=== PATIENT | female | born 1940 | race Caucasian/White ===

== ENCOUNTER → 2016-11-10 | Outpatient (CLI) | payer MEDICARE ==
--- NOTE | 2016-11-10 15:41 | MAM ---
History: Well woman exam. Date of exam: 11/10/2016 Services provided: Bilateral full field digital screening mammography. CAD, the images were reviewed with R2 computer aided detection. FINDINGS: Glandular tissue is scattered glandular contour. Comparison with 2012 exam. No dominant mass, architectural distortion or clustered microcalcification. IMPRESSION: Benign exam Recommendation: Routine annual mammography BIRAD CATEGORY: 2 BENIGN Electronically signed by: Jazmine Aleman MD 11/10/2016 3:40 PM CDT Workstation: [id number]
== END | disposition home or self-care (01) ==
LOC: RAD 14:53
PROVIDERS: ATTEND Family Medicine
DX: Z12.31 Encounter for screening mammogram for malignant neoplasm of breast (principal)

== ENCOUNTER → 2017-03-10 | Outpatient (CLI) | payer MEDICARE | END | disposition home or self-care (01) | LOC: GMAB 11:03 | PROVIDERS: ATTEND Family Medicine | DX: E03.9 Hypothyroidism, unspecified (principal); E78.5 Hyperlipidemia, unspecified ==

== ENCOUNTER → 2017-03-13 | Outpatient (CLI) | payer MEDICARE ==
--- NOTE | 2017-03-13 15:30 | US ---
EXAM DESCRIPTION: Abdomen,Complete CLINICAL HISTORY: CHRON DISEASE WO COMPLICATIONS COMPARISON: ET scan 07/11/2015. TECHNIQUE: Transabdominal scannin-dimensional and Doppler modes. FINDINGS: The gallbladder is normal in size, shape, and echogenicity, with no intraluminal stones or sludge. No fluid around the gallbladder. Wall thickness normal. 1.1 mm. Common bile duct caliber 2.8 mm which is within normal limits. No stones in the visualized portion of the duct. Not tender with transducer pressure. The liver demonstrates normal echogenicity; contour of the liver capsule is smooth where seen. No fluid around the liver. Intrahepatic biliary ducts are non-dilated. Craniocaudal dimension in the mid-clavicular axis is 11.4 cm. Pancreas head, body, and tail normal in size and echogenicity. Pancreatic duct is not dilated. Normal Doppler vascularity in the christiano hepatis. Abdominal aorta diameter proximal 2.3 cm. Mid 1.6 cm. Distal 1.4 cm. IVC visualized; normal caliber. Spleen normal echogenicity; long axis measurement is 5.7 cm. No fluid in the spleno-renal fossa. Right kidney measures 9.5 x 5.0 x 4.9 cm , normal mid renal cortical thickness. Echogenicity normal with no hydronephrosis, no large calcifications, and no perinephric fluid. Contour smooth. Vascularity normal. Ureter not visualized. Left kidney measures 9.2 x 5.6 x 5.2 cm , normal mid renal cortical thickness. Echogenicity normal with no hydronephrosis, no large calcifications, and no perinephric fluid. Contour smooth. Vascularity normal. Ureter not visualized. IMPRESSION: Normal ultrasound of the abdomen. Normal size echogenicity of the liver, spleen, gallbladder, pancreas, and kidneys. Normal intrahepatic and extrahepatic ducts. No ascites. Electronically signed by: Rick Hansen MD 03/13/2017 3:29 PM CDT
== END | disposition home or self-care (01) ==
LOC: US 09:12
PROVIDERS: ATTEND Family Medicine
DX: K50.90 Crohn's disease, unspecified, without complications (principal)

== ENCOUNTER → 2018-02-15 | Outpatient (CLI) | payer MEDICARE ==
--- NOTE | 2018-02-12 16:53 | MRI ---
EXAM DESCRIPTION: Brain w/o Contrast: MRI. CLINICAL HISTORY: DIZZINESS COMPARISON: None. TECHNIQUE: Multiplanar, high-field MRI unit, multiple diffusion sequences, multiple conventional sequences without contrast. Some of the sequences are partially degraded due to patient motion. FINDINGS: Bilateral confluent and multifocal hyperintense FLAIR and T2-weighted signal in the periventricular white matter, more than the david-white matter junctions of the cerebral hemispheres. Relatively symmetric bilaterally. No hemorrhage, no cerebral edema, no mass-effect. No diffusion restriction. Similar hyperintense T2 and FLAIR signal in the bilateral basal ganglia, but no hemorrhage or diffusion restriction. Minimal FLAIR hyperintense signal in the brainstem, mainly in the tamra. Normal signal in the bilateral cerebellar hemispheres. No hemorrhage, no cerebral edema, no mass-effect. Concordance of the diffusion and non-diffusion sequences with no diffusion restriction. Cortical sulci, ventricles, and other CSF spaces, and the subdural spaces are normally configured for patients age. No effacement or displacement. No hydrocephalus or midline shift. No extra-axial hemorrhage. Normal flow signal void in the major vessels of the [place], and the venous sinuses. IACs are symmetric bilaterally. Minimal fluid signal bilaterally in the mastoid air cells. No mass effect in the bilateral cerebellopontine angles. Pituitary gland occupies most of the sella. Base of the cerebellar tonsils is above the foramen magnum. Minimal chronic thickening in the ethmoid air cells. Left maxillary antrum unremarkable. Right maxillary antrum obscured by metallic susceptibility artifact from dental hardware right maxilla.. The bony calvarium is intact. IMPRESSION: 1. Bilateral symmetric abnormal white matter signal in the periventricular white matter and bilateral basal ganglia most likely related to cerebral microvascular disease and age-related changes. Minimal age-related changes in the subcortical white matter. Also bilateral vascular changes in the tamra of the brainstem. 2. No intra-axial or extra-axial hemorrhage, no mass effect, no cerebral edema. Normal noncontrast MRI diffusion study with no diffusion restriction and no evidence of acute or subacute infarction Electronically signed by: Rick Hansen MD 02/12/2018 4:51 PM CDT
--- NOTE | 2018-02-13 10:34 | MRI ---
EXAM DESCRIPTION: MRA Head and/or Neck CLINICAL HISTORY: DIZZINESS COMPARISON: None. TECHNIQUE: 3D [id number] thin-section axial acquisitions through the base of the skull and the [place]. Non contrast. MIP reconstructions. FINDINGS: Bilateral ICAs are well seen in the superior cervical segments, petrous bone segments, carotid siphons and intracranial segments. No significant narrowing. Normal bifurcations bilaterally no significant narrowing of proximal middle cerebral and anterior cerebral arteries bilaterally. No aneurysms, no mass effect, and no vasculitis. Posterior circulation is unremarkable with codominant vertebral arteries. No posterior communicating arteries between the anterior and posterior circulations are visualized. Incidentally noted is no right PICA vessel originating from the distal right vertebral artery. IMPRESSION: No significant abnormalities noted in the anterior and posterior circulations of the brain: No aneurysms, no stenoses, no mass effect, and no vasculitis. No posterior communicating arteries between the anterior and posterior circulations which is a normal variant. Electronically signed by: Rick Hansen MD 02/13/2018 10:33 AM CDT
== END ==
LOC: MRI 14:00
PROVIDERS: ATTEND Psychiatry & Neurology Neurology
DX: R42 Dizziness and giddiness (principal); R11.0 Nausea

== ENCOUNTER → 2019-01-03 | Outpatient (CLI) | payer MEDICARE | LOC: GMAE 10:52 | PROVIDERS: ATTEND Family Medicine | DX: E03.9 Hypothyroidism, unspecified (principal); I10 Essential (primary) hypertension ==

== ENCOUNTER → 2019-01-06 | Outpatient (CLI) | payer MEDICARE ==
--- NOTE | 2019-01-06 19:19 | MRI ---
EXAM DESCRIPTION: Brain w/o Contrast: MRI. CLINICAL HISTORY: DIZZINESS AND GIDDINESS COMPARISON: MRI scan of the brain without contrast 02/12/2018. TECHNIQUE: Multiplanar, high-field MRI unit, multiple diffusion sequences, multiple conventional sequences without contrast. FINDINGS: Confluent hyperintense FLAIR and T2-weighted signal in the [place] radiata of the bilateral frontal lobes and abutting the frontal horns, extending superiorly into the centrum semiovale of the frontal parietal and occipital lobes. Also bilateral focal lesions in the subcortical white matter mostly in the frontal and parietal lobes with fewer lesions in the occipital lobes. No significant change from the prior study.. No hemorrhage, no cerebral edema, no mass-effect. No diffusion restriction. Bilateral focal lesions in the basal ganglia, particularly anterior limbs of the internal capsules more on the left than the right. Stable since the prior study with no hemorrhage mass effect or diffusion restriction. Similar signal but less distinct in the bilateral tracts of the tamra, and the anterior right pontine cortex. No hemorrhage or diffusion restriction. Normal signal in the remainder of the brain stem and cerebellar hemispheres. No hemorrhage, no parenchymal edema, no mass-effect. No diffusion restriction. Concordance of the diffusion and non-diffusion sequences with no diffusion restriction. Cortical sulci, ventricles, and other CSF spaces, and the subdural spaces are age appropriate. No effacement or displacement. No midline shift. No extra-axial hemorrhage. Normal flow signal void in the major vessels of the [place], and the venous sinuses. IACs are symmetric bilaterally. Normal signal in the bilateral mastoid air cells. No mass effect in the bilateral cerebellopontine angles. Pituitary gland occupies most of the sella. Base of the cerebellar tonsils is above the foramen magnum. No significant chronic or acute disease in the paranasal sinuses.. The bony calvarium is intact. IMPRESSION: 1. Multifocal and confluent periventricular white matter lesions and lesions in the bilateral centrum semiovale predominantly in the frontal and parietal lobes. Also bilateral subcortical and periventricular white matter lesions are fewer in the occipital lobes. Also bilateral extensive involvement of the basal ganglia, more left than right. Stable since the prior study most likely related to cerebral microvascular disease and/or age-related changes. Also age-related changes of the ventricles and cortical sulci and cisterns. No intra-axial extra-axial hemorrhage, no mass effect, and no diffusion restriction. 2. Bilateral signal in the central tracts of the tamra, and anterior right cortex, most likely same process with no hemorrhage or diffusion restriction. Also stable since the prior study.. Electronically signed by: iRck Hansen MD 01/06/2019 7:18 PM CDT
== END ==
LOC: MRI 11:00
PROVIDERS: ATTEND Family Medicine
DX: R90.82 White matter disease, unspecified (principal)

== ENCOUNTER → 2020-03-09 | Outpatient (CLI) | payer MEDICARE | LOC: GMAE 13:19 | PROVIDERS: ATTEND Family Medicine | DX: I10 Essential (primary) hypertension (principal) ==

== ENCOUNTER → 2020-03-23 | Outpatient (CLI) | payer MEDICARE ==
--- NOTE | 2020-03-26 13:51 | MRI ---
EXAM DESCRIPTION: Brain w/o Contrast: MRI. CLINICAL HISTORY: MS COMPARISON: Noncontrast MRI scan brain December 2018. TECHNIQUE: Multiplanar, high-field MRI unit, multiple diffusion sequences, multiple conventional sequences without contrast. Some sequences showing motion artifact. FINDINGS: Inflammatory hyperintense FLAIR and T2-weighted signal in the periventricular white matter predominantly in the frontal and parietal lobes extending superiorly in the hill radiata bilaterally and also involving the centrum semiovale. Also bilateral foci of hyperintense T1 and T2 lesions in the subcortical white matter predominantly frontal and parietal lobes. Also similar signal lesions in the bilateral anterior limbs of internal capsule, more than posterior limbs. Minimal involvement of the occipital lobes. No white matter lesions in the corpus callosum. No hemorrhage, no cerebral edema, no midline shift.. No diffusion restriction. Stable since the prior study Multifocal lesions involving the bilateral basal ganglia. No hemorrhage, no cerebral edema, no mass-effect. No diffusion restriction. No change from the prior study. Bilateral similar signal in the tamra; no hemorrhage, no mass effect, no diffusion restriction. No interval change. Remainder of the Brainstem and cerebellar hemispheres are unremarkable. No hemorrhage, no cerebral edema, no mass-effect. Concordance of the diffusion and non-diffusion sequences in the remainder of the brain with no diffusion restriction. Cortical sulci, ventricles, and other CSF spaces, and the subdural spaces are morphologically consistent with the patient's age. No effacement or displacement. No midline shift. No extra-axial hemorrhage. Normal flow signal void in the major vessels of the [place], and the venous sinuses. Stable since the prior study. IACs are symmetric bilaterally. Normal signal in the bilateral mastoid air cells. No mass effect in the bilateral cerebellopontine angles. Pituitary gland occupies most of the sella. Base of the cerebellar tonsils is at the level of the foramen magnum. Minimal mucoperiosteal thickening in the paranasal sinuses.. The bony calvarium is intact. IMPRESSION: 1. Multiple periventricular white matter lesions, as well as lesions in the subcortical white matter, basal ganglia, internal capsule, and tamra, consistent with clinical history. No new/significant lesions since the prior study December 2018. No intra-axial extra-axial hemorrhage, no cerebral edema. No diffusion restriction. 2. Diffusion noncontrast brain study also normal enhancement of the regions of the brain. Chronic paranasal sinusitis. Electronically signed by: Rick Hansen MD 03/26/2020 1:49 PM CDT
== END ==
LOC: MRI 13:00
PROVIDERS: ATTEND Psychiatry & Neurology Neurology
DX: G35 Multiple sclerosis (principal); M51.16 Intervertebral disc disorders with radiculopathy, lumbar region; J32.9 Chronic sinusitis, unspecified

== ENCOUNTER → 2020-04-02 | Outpatient (CLI) | payer MEDICARE ==
--- NOTE | 2020-04-03 15:41 | MRI ---
EXAM DESCRIPTION: Cervical Spine: MRI. CLINICAL HISTORY: 80 years Female MS COMPARISON: MRI scan of the brain March 23. TECHNIQUE: Multiplanar, high-field MRI, multiple sequences, non-contrast Cervical spine. FINDINGS: C2-C3: Minimal disc desiccation with disc space maintained. Trace anterolisthesis. No bulging. Bilateral foramina are patent. However, the left vertebral artery enters the left foramen abutting the exiting left C3 nerve. Mild left facet arthrosis. No canal stenosis. C3-C4: Moderate disc space loss and endplate reactive changes larger to the left of midline. Bilateral uncinate spurs. Posterior disc osteophyte complex bulge abutting the cord. Moderate narrowing of the right neural foramen and borderline left neural foraminal stenosis. Moderate canal narrowing. No significant facet arthrosis bilaterally. C4-C5: Disc desiccation and bilateral moderate endplate reactive changes. Posterior disc osteophyte bulge abutting the cord and thickening of the ligaments with moderate canal narrowing. Bilateral uncinate spurs and moderate right neuroforaminal narrowing and moderate to severe left neural foraminal narrowing. No significant facet arthrosis bilaterally. C5-C6: Disc desiccation bilateral moderate endplate reactive changes and also posterior disc osteophyte complex bulge impressing on the midline and right paracentral cord. Posterior bilateral ligament thickening with mild central canal stenosis. Moderate right foraminal narrowing and borderline left neural foraminal stenosis. C6-C7: Disc desiccation and mild to moderate disc space loss mostly posterior. Posterior minimal disc osteophyte bulge not abutting the cord. Mild canal narrowing. Mild Bilateral neural foraminal narrowing.. Normal signal in the C7-T1 disc and T1-T2 disc with no bulging. Disc spaces preserved. Canal and neural foramina are patent. Facet joints unremarkable. Spinal alignment C2-C4 kyphosis. No cord compression or cord edema. Atlantoaxial joint negative. Base of the cerebellar tonsils is above the foramen magnum. Paravertebral soft tissues negative. Vertebral bodies are not compressed at any level. Otherwise normal marrow signal in the remaining vertebral bodies and the posterior elements. IMPRESSION: 1. Multiple levels of spondylosis, disc space loss, disc desiccation, uncinate spurs and Canal and foraminal significant narrowing from C3-C4 level to C6-C7 level. 2. Borderline left neural foraminal stenosis C3-C4. Correlate for left C4 radiculopathy. 3. Moderate to severe left neural foraminal narrowing at C4-C5. Correlate for left C5 radiculopathy. 4. Advanced spondylosis C5-C6 with mild central canal stenosis and borderline left neural foraminal stenosis. Correlate for left C6 radiculopathy. 5. Please refer to the FINDINGS for discussion of results at other disc space levels. Electronically signed by: Rikc Hansen MD 04/03/2020 3:39 PM [facility]
== END ==
LOC: MRI 14:00
PROVIDERS: ATTEND Psychiatry & Neurology Neurology
DX: G35 Multiple sclerosis (principal); M51.16 Intervertebral disc disorders with radiculopathy, lumbar region; M47.892 Other spondylosis, cervical region; M48.02 Spinal stenosis, cervical region; M50.31 Other cervical disc degeneration, high cervical region; M50.321 Other cervical disc degeneration at C4-C5 level; M50.322 Other cervical disc degeneration at C5-C6 level; M50.323 Other cervical disc degeneration at C6-C7 level; M25.78 Osteophyte, vertebrae

== ENCOUNTER → 2020-04-06 | Outpatient (CLI) | payer MEDICARE ==
--- NOTE | 2020-04-05 16:06 | MRI ---
EXAM DESCRIPTION: Lumbar Spine w/o Contrast CLINICAL HISTORY: RADICULOPATHY COMPARISON: None Available. TECHNIQUE: MRI of the lumbar spine is performed according to our usual protocol with axial and sagittal multi sequence imaging. FINDINGS: Essentially normal alignment of the spine with preservation of vertebral height with diffuse disc desiccation and multilevel mild to modest disc space narrowing, most evident at L3-4. Approximately 2 mm of retrolisthesis at L2-3, L3-4, and L4-5 noted. Mild edematous endplate changes on either side of the L3-4 disc space noted. Tiny amount of fluid in the L3-4 disc space should be considered. Paraspinous and retroperitoneal structures are unremarkable. Conus positioned at the inferior L1 level no intradural or intramedullary abnormalities noted. Lower thoracic spine demonstrates degenerative disc narrowing at T10-11 and disc desiccation at T11-12 without disc bulges or spinal stenosis or neural compression. Thoracolumbar junction at T12-L1 demonstrate normal disc contour with mild disc desiccation. Adequate neural foramina noted. L1-2: Preserved disc height with disc desiccation and mild annular bulge and facet arthropathy with adequate neural foramina and lateral recesses and central canal. Very little facet arthropathy. L2-3: Disc desiccation with preserved disc height with 2 mm retrolisthesis at the disc level with 2 mm broad-based annular bulge with adequate canal and mild facet and ligamentum flavum hypertrophy. No lateralizing herniation with adequate L2 neural foramina bilaterally. L3-4: Advanced disc degenerative disease with 2 mm retrolisthesis endplate irregularity and endplate marrow edematous changes with small amount of fluid suggested within the anterior disc space with 2/3 mm annular bulge with moderate facet and ligamentum flavum hypertrophy. Adequate central canal with at least mild compromise of the left lateral recess and left neural foramen. More normal right lateral recess with moderate foraminal stenosis as well from annular bulge facet disease disc space narrowing. L4-5: Disc desiccation mild 2 mm retrolisthesis and mild disc space narrowing with one-2 mm broad-based annular bulge with adequate central canal and moderate facet and marked ligamentum flavum hypertrophy. Marked severe left and moderate right foraminal stenosis from posterior element hypertrophy and annular bulge. Significant left L4 neural compression suspected. L5-S1: Disc desiccation with narrowing of the posterior disc space with one-2 mm broad-based annular bulge and mild 1-2 mm central disc protrusion. Moderate facet hypertrophy with marked ligamentum flavum hypertrophy. Adequate central canal and right and left neural foramen with only mild narrowing. No lateralizing herniation seen. IMPRESSION: 1. Diffuse disc desiccation with advanced disc degenerative changes in the endplate irregularity and disc narrowing L3-4. 2. Essentially normal examination from L1-2 cephalad with mild annular prominence at L2-3 without neural compression. 3. Advanced disc narrowing disc degeneration and minimal retrolisthesis and annular bulge L3-4 with adequate central canal with mild compromise left lateral recess with modest left and moderate right foraminal narrowing from facet and ligamentum flavum hypertrophy. 4. Retrolisthesis and annular bulge L4-5 with adequate central canal with marked left and moderate right foraminal stenosis from posterior element hypertrophy. 5. Mild annular prominence and small central protrusion L5-S1 with adequate central canal with mild narrowing both L5 neural foramina from facet disease and annular bulge. Electronically signed by: Mitchell Jones MD 04/05/2020 4:05 PM [facility]
== END ==
LOC: MRI 14:00
PROVIDERS: ATTEND Psychiatry & Neurology Neurology
DX: M51.16 Intervertebral disc disorders with radiculopathy, lumbar region (principal); G35 Multiple sclerosis; M43.16 Spondylolisthesis, lumbar region; M24.28 Disorder of ligament, vertebrae